=== PATIENT | male | born 1970 | race African-American/Black ===

== ENCOUNTER 2018-08-02 13:16 | Emergency (ER) | payer MEDICAID ==
[~2018-08-02] VITALS: Ht 170.2 cm; Wt 75.9 kg
[~2018-08-02 13:16] MED LIST: ALLO100T PO; HYDR-565 PO; RISP2TAB97 PO
[2018-08-02 14:23] LABS: CLARITY,URINE CLOUDY (Clear); COLOR,URINE YELLOW (Yellow); GLUCOSE, URINE NEGATIVE (Neg); KETONES,URINE NEGATIVE (Neg); LEUKOCYTE ESTERASE ,URINE LARGE (Neg); NITRITES, URINE NEGATIVE (Neg); OCCULT BLOOD,URINE MODERATE (Neg); PROTEIN,URINE TRACE mg/dl (Neg); UROBILINOGEN,URINE >=8.0 E.U/dL (0.2-1.0)
[2018-08-02 14:24] LABS: UA COLLECTION TYPE VOIDED
[2018-08-02] MEDS ORDERED: azithromycin 250mg tablet PO ONE (14:25)
[2018-08-02] MEDS ORDERED: CefTRIAXone 250MG IM Kit w/LIDOcaine IM ONE (14:25)
[2018-08-02 14:39] LABS: SQUAMOUS EPITHELIAL CELL,UR FEW /LPF (FEW); WBC,URINE TNTC /HPF (0-4)
[2018-08-02 14:40] LABS: RBC,URINE 0-2 /HPF (0-2)
[2018-08-02 14:42] LABS: BACTERIA,URINE FEW /HPF (Neg)
[2018-08-02] MEDS ORDERED: CIPR-230 PO (14:45)
[2018-08-02 14:51] VITALS: BP 110/70
== END 2018-08-02 14:53 | disposition home or self-care (01) ==
LOC: ER 13:19
DX: N39.0 Urinary tract infection, site not specified (principal); F12.90 Cannabis use, unspecified, uncomplicated; F10.20 Alcohol dependence, uncomplicated; Z20.2 Contact with and (suspected) exposure to infections with a predominantly sexual mode of transmission; Z79.2 Long term (current) use of antibiotics; Z79.899 Other long term (current) drug therapy; Y90.9 Presence of alcohol in blood, level not specified
CPT/HCPCS: 36415; 81001; 87088; 87491; 87591; 96372; 99284; J0696

== ENCOUNTER 2021-03-10 11:30 | Emergency (ER) | payer MEDICAID ==
[~2021-03-10] VITALS: Ht 175.3 cm; Wt 75.0 kg
[~2021-03-10 11:30] MED LIST changes: +HYDR-4353 PO; -HYDR-565 PO
[2021-03-10 11:51] VITALS: BP 118/79
[2021-03-10] MEDS ORDERED: TETanus/Pertussis (Acell)/Diphther VAC/PF (Tdap-Adult) 0.5ml syringe IMVAC ONE (12:50)
== END 2021-03-10 14:18 | disposition home or self-care (01) ==
LOC: ER 11:34
DX: S61.012A Laceration without foreign body of left thumb without damage to nail, initial encounter (principal); F29 Unspecified psychosis not due to a substance or known physiological condition; F17.200 Nicotine dependence, unspecified, uncomplicated; F12.90 Cannabis use, unspecified, uncomplicated; F15.90 Other stimulant use, unspecified, uncomplicated; Z72.89 Other problems related to lifestyle; Z79.899 Other long term (current) drug therapy; W18.39XA Other fall on same level, initial encounter; Y93.89 Activity, other specified; Y92.89 Other specified places as the place of occurrence of the external cause; Y99.8 Other external cause status
CPT/HCPCS: 90471; 90715; 99283

== ENCOUNTER 2023-06-04 04:36 | Emergency (ER) | payer MEDICAID ==
[~2023-06-04] VITALS: Ht 175.3 cm; Wt 75.0 kg
[~2023-06-04 04:36] MED LIST changes: -HYDR-4353 PO; -RISP2TAB97 PO
[2023-06-04 04:54] VITALS: BP 119/74; PULSE 71; RESP 14; TEMP 98.8; O2SAT 100
[2023-06-04] MEDS ORDERED: BACI28.42 TOP (09:19)
[2023-06-04] MEDS ORDERED: SULF1TAB49 PO (09:19)
== END 2023-06-04 09:22 | disposition home or self-care (01) ==
LOC: ER 04:44
DX: L02.11 Cutaneous abscess of neck (principal); F12.90 Cannabis use, unspecified, uncomplicated; F15.90 Other stimulant use, unspecified, uncomplicated; Z79.899 Other long term (current) drug therapy; Z79.1 Long term (current) use of non-steroidal anti-inflammatories (NSAID)
CPT/HCPCS: 99283